=== PATIENT | female | born 2000 | race African-American/Black ===

== ENCOUNTER → 2021-03-21 | Day surgery (SDC) | payer OTHER ==
[~2021-03-21] MED LIST: CEFTRIAXONE 1 GM VIAL ONE; DEXAMETHASONE SOD PHOS INJ 4 MG/ML SDV ONE; FENTANYL CITRATE/PF 100MCG/2 ML INJ ONE; IOPAMIDOL 300MG/ML 50ML INFUS..BTL IV ONE; LIDOCAINE HCL 2% LOCAL INJ 5 ML SDV VIAL INJ ONE; MIDAZOLAM HCL 2 MG/2 ML VIAL ONE; ONDANSETRON HCL INJ 2MG/ML 2ML 2 MG/ML VIAL ONE; POVIDONE IODINE 0.05% 0.05 % ML PO ONE; PROPOFOL IV EMULSION 10 MG/ML 20 ML VIAL ONE; SEVOFLURANE INHAL SOLN 250 ML PEN BTL ONE; SODIUM CHLORIDE 0.9% 50ML 50 ML ONE
[2021-03-21 09:45] VITALS: BP 99/65
== END | disposition home or self-care (01) ==
LOC: OR 07:18
PROVIDERS: ATTEND Urology
DX: N39.0 Urinary tract infection, site not specified (principal); Q62.5 Duplication of ureter; Z01.812 Encounter for preprocedural laboratory examination; Z20.822 Contact with and (suspected) exposure to COVID-19
CPT/HCPCS: 52005; 74420; 81025; C1758; J0696; J1100; J2001; J2250; J2405; J2704; J3010; Q9967; U0002